=== PATIENT | male | born 1930 | race Caucasian/White ===

== ENCOUNTER 2016-05-09 14:50 | Outpatient (CLI) | payer MEDICARE, OTHER | END 2016-05-09 14:51 | disposition home or self-care (01) | DX: E29.1 Testicular hypofunction (principal) ==

== ENCOUNTER 2016-05-15 10:40 | Outpatient (CLI) | payer MEDICARE, OTHER | END 2016-05-15 10:41 | disposition home or self-care (01) | DX: E87.1 Hypo-osmolality and hyponatremia (principal) ==

== ENCOUNTER 2016-11-20 10:22 | Outpatient (CLI) | payer MEDICARE, OTHER ==
[2016-11-20 13:52] LABS: BASOPHILS % (AUTO) 0.8 %; EOSINOPHILS # (AUTO) 0.1 10^3/uL (0.0-0.7); EOSINOPHILS % (AUTO) 4.1 %; HCT - HEMATOCRIT 49.2 % (42.0-52.0); HGB - HEMOGLOBIN 16.4 g/dL (14.0-18.0); LYMPHOCYTES # (AUTO) 1.2 10^3/uL (1.5-3.5); LYMPHOCYTES % (AUTO) 35.2 %; MEAN CORPUSCULAR HGB CONC 33.3 g/dL (32.0-36.0); MEAN CORPUSCULAR VOLUME 93.2 fL (80.0-94.0); MONOCYTES # (AUTO) 0.6 10^3/uL (0.0-1.0); MONOCYTES % (AUTO) 16.7 %; NEUTROPHILS # (AUTO) 1.4 10^3/uL (1.5-6.6); NEUTROPHILS % (AUTO) 43.2 %; NUCLEATED RED BLOOD CELLS AUTO 0.2 /100WBC; RED BLOOD COUNT 5.28 10^6/uL (4.70-6.10); RED CELL DISTRIBUTION WIDTH 14.9 % (12.0-15.0); UNCORRECTED WHITE BLOOD COUNT 3.3 x10^3/uL; WHITE BLOOD COUNT 3.3 x10^3/uL (4.8-10.8)
[2016-11-20 14:18] LABS: ALBUMIN/GLOBULIN RATIO 1.1 (1.0-2.2); BILIRUBIN,TOTAL 0.9 mg/dL (0.2-1.0); BUN - BLOOD UREA NITROGEN 27 mg/dL (6-20); CALCIUM 9.2 mg/dL (8.5-10.3); CARBON DIOXIDE - CO2 30 mmol/L (21-32); CHLORIDE 100 mmol/L (101-111); CHOL/HDL RATIO 5.3 (<5.0); CHOLESTEROL 213 mg/dL; CREATININE 1.1 mg/dL (0.6-1.2); GFR - MDRD 64 (>89); GLUCOSE 120 mg/dL (70-100); HDL CHOLESTEROL 40 mg/dL; LDL/HDL RATIO 3.9 (<3.6); POTASSIUM 4.1 mmol/L (3.5-5.0); SODIUM 136 mmol/L (135-145); TOTAL PROTEIN 7.4 g/dL (6.7-8.2); TRIGLYCERIDES 79 mg/dL; VLDL CHOLESTEROL 16 mg/dL
== END 2016-11-20 10:23 | disposition home or self-care (01) ==
LOC: LAB.WCP 10:22
PROVIDERS: ATTEND Family Medicine
DX: E87.1 Hypo-osmolality and hyponatremia (principal); I35.0 Nonrheumatic aortic (valve) stenosis; Q98.4 Klinefelter syndrome, unspecified; D46.9 Myelodysplastic syndrome, unspecified; I48.0 Paroxysmal atrial fibrillation; I71.4 Abdominal aortic aneurysm, without rupture
CPT/HCPCS: 36415; 80053; 80061; 84443; 85025

== ENCOUNTER 2017-07-22 13:46 | Outpatient (CLI) | payer MEDICARE, OTHER ==
[2017-07-22 19:06] LABS: EOSINOPHILS # (AUTO) 0.1 10^3/uL (0.0-0.7); EOSINOPHILS % (AUTO) 3.7 %; HGB - HEMOGLOBIN 16.9 g/dL (14.0-18.0); LYMPHOCYTES # (AUTO) 1.2 10^3/uL (1.5-3.5); MEAN CORPUSCULAR HEMOGLOBIN 30.6 pg (27.0-31.0); MEAN CORPUSCULAR VOLUME 92.8 fL (80.0-94.0); MEAN PLATELET VOLUME 7.9 fL (7.4-11.4); MONOCYTES # (AUTO) 0.5 10^3/uL (0.0-1.0); MONOCYTES % (AUTO) 14.3 %; NEUTROPHILS # (AUTO) 1.4 10^3/uL (1.5-6.6); PLT - PLATELET COUNT 128 10^3/uL (130-450); RED BLOOD COUNT 5.52 10^6/uL (4.70-6.10); RED CELL DISTRIBUTION WIDTH 14.2 % (12.0-15.0); WHITE BLOOD COUNT 3.1 x10^3/uL (4.8-10.8)
[2017-07-22 19:37] LABS: ALBUMIN 4.7 g/dL (3.2-5.5); ALBUMIN/GLOBULIN RATIO 1.4 (1.0-2.2); BILIRUBIN,TOTAL 0.8 mg/dL (0.2-1.0); CALCIUM 9.8 mg/dL (8.5-10.3); CREATININE 1.1 mg/dL (0.6-1.2); TOTAL PROTEIN 8.1 g/dL (6.7-8.2)
== END 2017-07-22 13:47 ==
LOC: LAB.WCP 13:46
PROVIDERS: ATTEND Family Medicine
DX: E87.1 Hypo-osmolality and hyponatremia (principal); E78.5 Hyperlipidemia, unspecified; I10 Essential (primary) hypertension
CPT/HCPCS: 36415; 80053; 85025

== ENCOUNTER 2018-08-20 11:27 | Day surgery (SDC) | payer MEDICARE, OTHER ==
[2018-08-20] MEDS ORDERED: LACTATED RINGERS 1,000 ML IV ONE ×2 (12:02→13:37)
[2018-08-20] MEDS ORDERED: LIDO GARGLE 30 ML BOTTLE ONE (12:40)
[2018-08-20] MEDS ORDERED: fentaNYL 100 MCG/2 ML VIAL IVP ONE ×2 (13:05)
[2018-08-20] MEDS ORDERED: MIDAZOLAM 2 MG/2 ML VIAL IVP ONE ×2 (13:05)
[2018-08-20] MEDS ORDERED: BENZOCAINE/TETRACAINE/BUTAMBEN 20 GM TOP ONE (13:17)
[2018-08-20] MEDS ORDERED: LIDO GARGLE 30 ML BOTTLE PO ONE (13:17)
[2018-08-20 15:28] VITALS: BP 117/67
== END 2018-08-20 11:28 | disposition home or self-care (01) ==
LOC: SDS 11:27
PROVIDERS: ATTEND Surgery
PROC: 0DBP8ZZ Excision of Rectum, Via Natural or Artificial Opening Endoscopic (ICD-10-PCS; principal; 2018-08-20 13:00)
PROC: 0DJ08ZZ Inspection of Upper Intestinal Tract, Via Natural or Artificial Opening Endoscopic (ICD-10-PCS; 2018-08-20 13:00)
DX: D50.9 Iron deficiency anemia, unspecified (principal); K63.5 Polyp of colon; K44.9 Diaphragmatic hernia without obstruction or gangrene; I48.0 Paroxysmal atrial fibrillation; I35.0 Nonrheumatic aortic (valve) stenosis; I10 Essential (primary) hypertension; K21.9 Gastro-esophageal reflux disease without esophagitis; I71.4 Abdominal aortic aneurysm, without rupture; G47.33 Obstructive sleep apnea (adult) (pediatric); Q98.4 Klinefelter syndrome, unspecified; H53.9 Unspecified visual disturbance; E78.5 Hyperlipidemia, unspecified; R73.02 Impaired glucose tolerance (oral); Z79.01 Long term (current) use of anticoagulants; Z95.0 Presence of cardiac pacemaker
CPT/HCPCS: 43235; 45380; A9270; J7120

== ENCOUNTER 2018-08-30 13:32 | Outpatient (CLI) | payer MEDICARE, OTHER | END 2018-08-30 13:33 | disposition home or self-care (01) | LOC: SC 13:32 | PROVIDERS: ATTEND Internal Medicine Pulmonary Disease | DX: G47.33 Obstructive sleep apnea (adult) (pediatric) (principal); E66.9 Obesity, unspecified; Z68.36 Body mass index [BMI] 36.0-36.9, adult | CPT/HCPCS: 99203; G0463; 99212 ==

== ENCOUNTER 2018-09-16 19:19 | Outpatient (CLI) | payer MEDICARE, OTHER | END 2018-09-16 19:20 | disposition home or self-care (01) | LOC: SC 19:19 | PROVIDERS: ATTEND Internal Medicine Pulmonary Disease | DX: G47.33 Obstructive sleep apnea (adult) (pediatric) (principal); G47.61 Periodic limb movement disorder | CPT/HCPCS: 95810 ==

== ENCOUNTER 2018-09-29 09:55 | Outpatient (CLI) | payer MEDICARE, OTHER | END 2018-09-29 09:56 | disposition home or self-care (01) | LOC: SC 09:55 | PROVIDERS: ATTEND Nurse Practitioner Family | DX: G47.33 Obstructive sleep apnea (adult) (pediatric) (principal); G47.61 Periodic limb movement disorder; I95.9 Hypotension, unspecified | CPT/HCPCS: 99215; G0463; 99212 ==

== ENCOUNTER 2018-10-28 19:37 | Outpatient (CLI) | payer MEDICARE, OTHER | END 2018-10-28 19:38 | disposition home or self-care (01) | LOC: SC 19:37 | PROVIDERS: ATTEND Internal Medicine Pulmonary Disease | DX: G47.33 Obstructive sleep apnea (adult) (pediatric) (principal); G47.61 Periodic limb movement disorder | CPT/HCPCS: 95811 ==

== ENCOUNTER 2018-11-11 12:44 | Outpatient (CLI) | payer MEDICARE, OTHER | END 2018-11-11 12:45 | disposition home or self-care (01) | LOC: SC 12:44 | PROVIDERS: ATTEND Nurse Practitioner Family | DX: G47.33 Obstructive sleep apnea (adult) (pediatric) (principal) | CPT/HCPCS: 99214; G0463; 99212 ==

== ENCOUNTER 2018-12-14 14:42 | Outpatient (CLI) | payer MEDICARE, OTHER ==
[2018-12-14 15:57] VITALS: BP 116/60
--- NOTE | 2018-12-14 15:57 | SLEEP CARE CONSULTATION ---
Information from patient questionnaire entered by Kelin Aguila. I have reviewed and concur with the information entered by Kelin Aguila. This document represents the service I personally performed and the decisions made by me, Paige Joe, RN, MSN, INVESTOR RELATIONS SPECIALIST. History of Present Illness Previous diagnosis: Severe, Obstructive Sleep Apnea-Hypopnea Syndrome AHI: 32.2 Reason for CPAP/BiPAP follow up: first compliance Equipment type: BiPAP Equipment obtained from: [facility] Mask style: Full face (Dreamwear) Mask brand: Respironics Backup mask available: No Last cushion change: none since set up HPI additional information: Patient here for first compliance of new BIPAP device that was indicated for better apnea control on his titration study. Since BiPAP started, the patient called reporting the pressure was too high so I adjusted lower from 20/96wiG63 to 16/95gkG22. He is still struggling with the new pressure being comfortable. CPAP Compliance Data - Data Reviewed with Patient Average duration of nightly device use: Compliance rate %: 86.7 Current pressure setting (cmH2O): 16/12 Humidity settin Heated hose settin Average residual AHI: 5.5 (this is on CPAP and BiPAP a few days) Average large leak: 49 mins 12 secs Subjective Patient concerns: reports: mask discomfort (only when pressure is at high range), mask leak noise (most night waking him), dry mouth, nose, throat. denies: aerophagia, air blowing in eyes, condensation in mask/hose, nasal congestion, epistaxis (only during day , not with CPAP. ) Initial [place] Sleepiness Scale score: 14 Current [place] Sleepiness Scale score: 14 Allergies and Home Medications Known drug allergies: Yes (aspirin, fish oil) Home medication list reviewed: Yes Allergy and home medication list: Medication List Medication Name (generic/name brand) Strength & Dosage Losartan Potassium 1/4 of a 100 mg tab one every evening = 25mg Bisoprolol Fumarate 1/2 of 10mg tab one daily = 5mg Eliquis 20mg tab one daily Lasix (Furosemide) 20mg tab one daily in the morning Acetaminophen 500mg tab 1-2 three times daily as needed One-A-Day Mens Tab one daily Vitamin C 1000mg tab one twice daily 50+ Adult Eye Health Cap two daily Move Free Joint Health Tab one Daily Omeprazole delayed release 20mg tab one daily Allergy List Aspirin Fish Oil Review of Systems Review of systems same as previous: Yes Physical Exam Blood Pressure: 116/60 Cuff size: long Heart Rate: 60 O2 Saturation: 97 Height: 5 ft 8 in Weight (kg): 103.328 kg Body Mass Index: 34.6 BMI Classification: Class 1 Impression and Plan 1. Obstructive Sleep Apnea-Hypopnea Syndrome, severe, with good treatment compliance of CPAP. Current BiPAP use shows slightly elevated AHI with limited use due to discomfort. On CPAP therapy, the patient has better sleep quality and is more rested overall but with BiPAP, the pressure is reported as too high and interfering with sleep. Thus after much discussion and review of compliance reports and sleep study, I will reduce his BiPAP pressure to 12/6cmH20. Patient advised to contact me if the pressure change is not comfortable . I will try to get completed in office for immediate results. Since he just started BiPAP, the next appointment checking his pressure will serve as his 1st compliant visit. To reduce mask leaks, he is to change the mask cushion regularly. He was informed the cushions are in route. The lower pressure and new cushions should reduce mask leaks and oral dryness. He can also adjust his humidity up or heated hose down for more moisture. Hopefully these measures will improve his sleep and reduce sleepiness symptoms. Patient's apnea severity and rationale for treatment to reduce apnea, improve sleep quality and reduce cardiovascular and cerebrovascular events was reviewed. I also reviewed the benefit of consistent device use of BiPAP for hypertension, arrhythmia. * Change BiPAP pressure to 12/6 cmH2O * Change mask cushion * Adjust humidity and heated hose. * Notify me if snoring with mask or feeling that the pressure is too much or too little * Attempt to lose weight * Return for follow up in 1-2 months , or sooner if concerns arise I spent 100% of this 35 minute visit face to face with the patient with greater than 50% of this was spent time counseling the patient and coordination of care.
== END 2018-12-14 14:43 | disposition home or self-care (01) ==
LOC: SC 14:42
PROVIDERS: ATTEND Nurse Practitioner Family
DX: G47.33 Obstructive sleep apnea (adult) (pediatric) (principal)
CPT/HCPCS: 99214; G0463; 99212

== ENCOUNTER 2019-02-15 09:10 | Outpatient (CLI) | payer MEDICARE, OTHER ==
[2019-02-15 10:54] VITALS: BP 90/50
--- NOTE | 2019-02-15 10:54 | SLEEP CARE CONSULTATION ---
Information from patient questionnaire entered by Kelin Aguila. I have reviewed and concur with the information entered by Kelin Aguila. This document represents the service I personally performed and the decisions made by me, Paige Joe, RN, MSN, THIRD GRADE TEACHER. History of Present Illness Previous diagnosis: Severe, Obstructive Sleep Apnea-Hypopnea Syndrome AHI: 32.2 Reason for CPAP/BiPAP follow up: other (2 month) Equipment type: BiPAP Equipment obtained from: [facility] Mask style: Full face Mask brand: Respironics Backup mask available: No Last cushion change: 1 month ago CPAP Compliance Data - Data Reviewed with Patient Average duration of nightly device use: 5.8 Compliance rate %: 88.3 (60 days) Current pressure setting (cmH2O): 12/6 Humidity settin Heated hose settin Average residual AHI: 7.6 Average large leak: 9 mins 21 secs Subjective Missed days of use due to: reports: other (mask leaks ) Patient concerns: reports: mask leak noise (much less after adjustment but difficulty getting seal again after using the bathroom ), nasal congestion (chronic , not interferring with use of BiPAP), dry mouth, nose, throat (most nights - he adjusted the humidity to 4 but no better). denies: aerophagia, mask discomfort, air blowing in eyes, condensation in mask/hose, epistaxis Observed to snore while using device: No (single and sleeps alone) Current pressure setting perceived as: comfortable On therapy, patient: reports: sleeping better, awakening more refreshed, more rested overall. denies: being more awake and alert during the day, drowsiness while driving Initial [place] Sleepiness Scale score: 14 Current [place] Sleepiness Scale score: 13 Allergies and Home Medications Known drug allergies: Yes (aspirin , fish oil ) Home medication list reviewed: Yes Allergy and home medication list: Medication Name (generic/name brand) Strength & Dosage Losartan Potassium 25 mg tab one every evening ( 1/4 tab of 100mg) Bisoprolol Fumarate 10mg 1/2 tab one daily Eliquis 20mg tab one daily toresemide 20mg tab one daily in the morning Acetaminophen 500mg tab 1-2 three times daily as needed One-A-Day Mens Tab one daily Vitamin C 1000mg tab one twice daily 50+ Adult Eye Health Cap two daily Move Free Joint Health Tab one Daily Omeprazole delayed release 20mg tab one daily Allergy List Aspirin Fish Oil Review of Systems Review of systems same as previous: No (blood pressure medications reduced) Physical Exam Blood Pressure: 90/50 (monitors B/P home 115/56 this morning, not usual fluid intake - given 8 ounce water, no light headed ness) Cuff size: long Heart Rate: 64 O2 Saturation: 97 Weight: 226 lb 9.6 oz Impression and Plan 1. Obstructive Sleep Apnea-Hypopnea Syndrome, severe, with good treatment compliance and slightly elevated residual AHI. The BiPAP pressure is comfortable now to use and able to use longer periods with more refreshment of sleep and more rested overall. There is still a slight elevation in residual AHI so I will increase his BiPAP slightly to 13/7 cmH20. He is advised to contact me if new pressure uncomfortable so can be adjusted. To reduce leaks when he sleeps on his side, his preferred position, I showed him a CPAP pillow that can be used. This and other styles run about $60 online. He has already adjusted mask to tightest that is comfortable and checks alignment of straps. He is unsure if he is changing his mask monthly so he is advised to do this as well to maintain fit and comfort of mask. For his oral dryness, I showed him again how to adjust the humidity higher to maximum of 5 on a sample PAP. If continued dryness, he can reduce the heated hose and increase only if condensation. He does not wake refreshed. I showed him that his current average is about 6 hours. I discussed how most people need 7-9 hous of sleep for optimal mental and physical function. He would like to achieve a minimum of 7 hours. To assist him to get more sleep, he is advised to keep a regular wake time and try to go bed about 10 minutes earlier a night until he feels he has adequate sleep. Current wake time is dependent upon ability to return to sleep after getting up to the bathroom. Maybe the PAP pillow will assist this by reducing mask leaks which awaken him when trying to go back to sleep after using the bathroom. Patient's apnea severity and rationale for treatment to reduce apnea, improve sleep quality and reduce cardiovascular and cerebrovascular events was reviewed. I also reviewed the benefit of consistent device use of BiPAP for hypertension, arrhythmia . * * Change BiPAP pressure to 13/7 cmH2O - done in office * Adjust humidity and heated hose * consider CPAP pillow * Obtain more sleep * Notify me if snoring with mask or feeling that the pressure is too much or too little * Return for follow up in 1-2 months , or sooner if concerns arise * * Addendum, The patient called the following day and stated the pressure increase was uncomfortable so returned to 12/7cmH20. I spent 100% of this 45 minute visit face to face with the patient with greater than 50% of this was spent time counseling the patient and coordination of care. Extra time also taken due to hearing deficit, wears 2 hearing aids.
== END 2019-02-15 09:11 | disposition home or self-care (01) ==
LOC: SC 09:10
PROVIDERS: ATTEND Nurse Practitioner Family
DX: G47.33 Obstructive sleep apnea (adult) (pediatric) (principal)
CPT/HCPCS: 99215; G0463; 99212

== ENCOUNTER 2019-04-07 10:10 | Outpatient (CLI) | payer MEDICARE, OTHER ==
--- NOTE | 2019-04-07 11:17 | SLEEP CARE CONSULTATION ---
Information from patient questionnaire entered by Annabella Delaney. I have reviewed and concur with the information entered by Annabella Delaney. This document represents the service I personally performed and the decisions made by me, Paige Joe, RN, MSN, HYDROBLASTER. History of Present Illness Previous diagnosis: Severe, Obstructive Sleep Apnea-Hypopnea Syndrome AHI: 32.2 Reason for follow up: other (2 month) Equipment type: BiPAP Equipment obtained from: [facility] Mask style: Full face Mask brand: Respironics Backup mask available: No (keep current mask when replaced for spare. ) Last cushion change: a couple days ago Prior sleep studies: Yes CPAP Compliance Data - Data Reviewed with Patient Average duration of nightly device use: 5h 37m Compliance rate %: 86.7 Current pressure setting (cmH2O): 12/6 Humidity settin Heated hose settin Average residual AHI: 11.2 Central apnea: 2.7 Obstructive apnea: 5.8 Hypopnea: 2.7 Average large leak: 14m 34s Subjective Patient concerns: reports: mask discomfort (does not hurt but not quite comfortable despite adjustment ), mask leak noise (wakes to adjust mask a few times a night - he will take off the mask occasionally and leave off when unable to keep mask fitted. ), nasal congestion (chronic but does not interfere with use of CPAP ), other (does not breathe through mouth in sleep and wonders if a nasal mask will work better ). denies: aerophagia, dry mouth, nose, throat (rare - only dryness during day if does not hydrate), epistaxis Observed to snore while using device: No (single) Current pressure setting perceived as: comfortable On therapy, patient: reports: awakening more refreshed, being more awake and alert during the day, more rested overall. denies: sleeping better, drowsiness while driving Initial [place] Sleepiness Scale score: 14 Current [place] Sleepiness Scale score: 14 Allergies and Home Medications Known drug allergies: Yes Home medication list reviewed: Yes (lasix changed to toresemide 20mg , no other changes ) Allergy and home medication list: Medication Name (generic/name brand) Strength & Dosage Losartan Potassium 25 mg tab one every evening Bisoprolol Fumarate 10mg tab one daily Eliquis 20mg tab one daily Lasix (Furosemide) 20mg tab one daily in the morning Acetaminophen 500mg tab 1-2 three times daily as needed One-A-Day Mens Tab one daily Vitamin C 1000mg tab one twice daily 50+ Adult Eye Health Cap two daily Move Free Joint Health Tab one Daily Omeprazole delayed release 20mg tab one daily Allergy List Aspirin Fish Oil Review of Systems Review of systems same as previous: Yes Physical Exam Blood Pressure: 100/60 (monitors at home, no dizziness) Cuff size: long Heart Rate: 64 O2 Saturation: 97 Height: 5 ft 8 in Weight: 230 lb Body Mass Index: 34.9 BMI Classification: Obesity Class 1 Impression and Plan 1. Obstructive Sleep Apnea-Hypopnea Syndrome, severe, with good treatment compliance and slightly elevated residual AHI. On CPAP therapy, the patient is more refreshed and alert and more rested overall. The BiPAP pressure was increased slightly at last visit but patient unable to tolerate, thus no change will be done at this time. Perhaps a nasal mask may be more comfortable as well as reduce residual AHI. Sometimes a full face mask can push jaw back and increase apnea. Currently his full face mask is uncomfortable and he is waking several times during the night to adjust. For his mask concerns, I showed him some masks. I fitted him with a DreamWisp mask , size large. I showed him how to track his sleep time and mask fit and AHI on sample device for him to check at home. An order was written for this mask style trial in the event he prefers. Otherwise a mask refitting will be done when he is due for a new mask. Patient's apnea severity and rationale for treatment to reduce apnea, improve sleep quality and reduce cardiovascular and cerebrovascular events was reviewed. Thus I reviewed how he needs to use CPAP with all sleep for maximum benefit of treatment. I also reviewed the benefit of consistent device use of CPAP for his hypertension, arrhythmia. * Continue BiPAP pressure at 12/6cmH2O * Try Dreamwisp nasal mask * Use CPAP with all sleep * Notify me if snoring with mask or feeling that the pressure is too much or too little * Attempt to lose weight * Return for follow up in 1-2 months , or sooner if concerns arise I spent 100% of this 33 minute visit face to face with the patient with greater than 50% of this was spent time counseling the patient and coordination of care.
[2019-04-07 11:18] VITALS: BP 100/60
== END 2019-04-07 10:11 | disposition home or self-care (01) ==
LOC: SC 10:10
PROVIDERS: ATTEND Nurse Practitioner Family
DX: G47.33 Obstructive sleep apnea (adult) (pediatric) (principal)
CPT/HCPCS: 99214; G0463; 99212

== ENCOUNTER 2020-05-30 11:59 | Outpatient (CLI) | payer MEDICARE, OTHER ==
[2020-05-30 18:46] LABS: HEMOGLOBIN A1c% 6.3 % (4.27-6.07)
[2020-05-30 18:52] LABS: BASOPHILS % (AUTO) 1.1 %; EOSINOPHILS # (AUTO) 0.1 10^3/uL (0.0-0.7); EOSINOPHILS % (AUTO) 3.8 %; HGB - HEMOGLOBIN 10.2 g/dL (14.0-18.0); LYMPHOCYTES # (AUTO) 1.3 10^3/uL (1.5-3.5); LYMPHOCYTES % (AUTO) 34.6 %; MEAN CORPUSCULAR HEMOGLOBIN 28.2 pg (27.0-31.0); MEAN CORPUSCULAR HGB CONC 30.9 g/dL (32.0-36.0); MEAN CORPUSCULAR VOLUME 91.2 fL (80.0-94.0); MEAN PLATELET VOLUME 10.4 fL (7.4-11.4); MONOCYTES # (AUTO) 0.5 10^3/uL (0.0-1.0); MONOCYTES % (AUTO) 13.8 %; NEUTROPHILS # (AUTO) 1.7 10^3/uL (1.5-6.6); NEUTROPHILS % (AUTO) 46.4 %; PLT - PLATELET COUNT 162 10^3/uL (130-450); RED BLOOD COUNT 3.62 10^6/uL (4.70-6.10); RED CELL DISTRIBUTION WIDTH 14.6 % (12.0-15.0); WHITE BLOOD COUNT 3.7 x10^3/uL (4.8-10.8)
[2020-05-30 19:15] LABS: CREATININE,URINE 98.4 mg/dL; MICROALBUM/CREATININE RATIO,UR 35.6 ug/mg (<30.0); MICROALBUMIN,URINE 3.5 mg/dL (0-300.0)
[2020-05-30 19:16] LABS: ALBUMIN 3.9 g/dL (3.2-5.5); ALBUMIN/GLOBULIN RATIO 1.1 (1.0-2.2); ALKALINE PHOSPHATASE 91 IU/L (42-121); ALT ALANINE AMINOTRANSFERASE 14 IU/L (10-60); AST ASPARTATE AMINOTRANSFERASE 23 IU/L (10-42); BILIRUBIN,TOTAL 0.7 mg/dL (0.2-1.0); BUN - BLOOD UREA NITROGEN 37 mg/dL (6-20); CALCIUM 9.3 mg/dL (8.5-10.3); CARBON DIOXIDE - CO2 28 mmol/L (21-32); CHLORIDE 98 mmol/L (101-111); CHOL/HDL RATIO 5.1 (<5.0); CHOLESTEROL 214 mg/dL; CREATININE 1.3 mg/dL (0.6-1.2); GLUCOSE 99 mg/dL (70-100); HDL CHOLESTEROL 42 mg/dL; LDL CHOLESTEROL,CALCULATED 157 mg/dL; LDL/HDL RATIO 3.7 (<3.6); TOTAL PROTEIN 7.6 g/dL (6.7-8.2); VLDL CHOLESTEROL 15 mg/dL
== END 2020-05-30 23:59 | disposition home or self-care (01) ==
LOC: LAB.WCP 11:59
PROVIDERS: ATTEND Internal Medicine
DX: I10 Essential (primary) hypertension (principal); R73.03 Prediabetes; I48.0 Paroxysmal atrial fibrillation; D46.9 Myelodysplastic syndrome, unspecified
CPT/HCPCS: 36415; 80053; 80061; 82043; 82570; 83036; 83721; 84443; 85025

== ENCOUNTER 2020-06-15 11:20 | Outpatient (CLI) | payer MEDICARE, OTHER ==
--- NOTE | 2020-06-15 16:04 | Ultrasound Report ---
PROCEDURE: Retroperitoneal Limited INDICATIONS: ABDOMINAL AORTIC ANEURYSM TECHNIQUE: Real-time scanning was performed of the retroperitoneal organs, with image documentation. COMPARISON: Ultrasound aorta 04/29/2015, FINDINGS: Aorta: Proximal mid and distal portions measure 2.4 x 2.3 x 2.5 cm, 5.6 x 5.6 x 5.8 cm and 5.9 x 5.9 x 6.5 cm respectively. Craniocaudal length of the aneurysm measures approximately 12.6 cm. It is note d on previous ultrasound exam that the mid and distal portion of the abdominal aneurysm has a maximal AP dimension of 4.9 cm which has increased as noted. Right iliac artery measures 2.4 x 2.0 x 1.9 cm. Left iliac artery measures 2.3 x 1.8 x 2.1 cm. IMPRESSION: 1. Apparent interval increase in size of previous identified aortic aneurysm. Further evaluation with CTA abdomen and pelvis is recommended for further characterization given interval increase in size s sarah 2014. Reviewed by: Madina Deras MD on 06/15/2020 4:02 PM PST Approved by: Madina Deras MD on 06/15/2020 4:02 PM PST Station ID: [id number]
== END 2020-06-15 11:21 | disposition home or self-care (01) ==
LOC: DI 11:20
PROVIDERS: ATTEND Internal Medicine
DX: I71.4 Abdominal aortic aneurysm, without rupture (principal)

== ENCOUNTER 2020-06-28 10:18 | Outpatient (CLI) | payer MEDICARE, OTHER | END 2020-06-28 10:19 | disposition home or self-care (01) | LOC: DI 10:18 | PROVIDERS: ATTEND Internal Medicine | DX: I08.0 Rheumatic disorders of both mitral and aortic valves (principal); I27.20 Pulmonary hypertension, unspecified; I71.4 Abdominal aortic aneurysm, without rupture | CPT/HCPCS: 93306 ==

== ENCOUNTER 2020-07-17 11:12 | Outpatient (CLI) | payer MEDICARE, OTHER ==
[2020-07-17] MEDS ORDERED: IOVERSOL 320 100 ML VIAL IVP ONE ×2 (11:48→12:39)
[2020-07-17 11:54] LABS: CALCIUM 9.6 mg/dL (8.5-10.3); CREATININE 1.4 mg/dL (0.6-1.2); POTASSIUM 3.9 mmol/L (3.5-5.0)
--- NOTE | 2020-07-17 17:39 | CT Report ---
PROCEDURE: ANGIO ABD RUNOFF W/WO - B/L INDICATIONS: AAA CONTRAST: IV CONTRAST: Optiray 320 ml: 125 PO CONTRAST: *NO PO CONTRAST TECHNIQUE: After the administration of intravenous contrast, 2 and 5 mm sections acquired from T12 to the feet, with optional delayed image acquisition from the knees to the feet. 3-dimensional maximum intensity projection (MIP) coronal and sagittal reformats, and/or 3-dimensional volume rendering reformatting w as then performed. For radiation dose reduction, the following was used: automated exposure control , adjustment of mA and/or kV according to patient size. COMPARISON: None. FINDINGS: Image quality: Excellent. Extravascular tissues: Lung bases are clear. Heart size is normal. The mitral valve has calcificat ions of the annulus. Liver and spleen are normal in size and enhancement. Gallbladder is normal Vamsi iary system is non dilated. Pancreas enhances normally. No adrenal nodules. Kidneys are normal in size and enhancement, without hydronephrosis. There are multiple cysts in the kidneys bilaterally me asuring up to 7.4 cm on the right and 2 on the left measuring 4.6 cm and 4.2 cm. Non opacified bowel loops demonstrate normal wall thickness and enhancement. No free fluid or air. No retroperitoneal o r mesenteric adenopathy. No ventral hernias. Bilateral fat-containing inguinal hernias. Bladder wal l thickness is normal. No suspicious bony lesions. No vertebral body compression fractures. There is a Crowder's cyst in the left popliteal fossa. Abdominal aorta: There is an infrarenal abdominal aortic aneurysm measuring up to 8.3 cm in diameter and measuring 12 cm in length. There is an eccentric mural thrombus along the anterior wall. There i s no evidence of rupture or extravasation. Right lower extremity: The right common iliac artery, internal iliac artery, external iliac artery, common femoral artery, deep femoral artery, superficial femoral artery, and popliteal artery are bowling nt. Left lower extremity: The left common iliac artery, internal iliac artery, external iliac artery, co mmon femoral artery, deep femoral artery, superficial femoral artery, and popliteal artery are patent . IMPRESSION: 1. Infrarenal abdominal aortic aneurysm measuring up to 6.3 cm in diameter and 12 cm in length. 2. 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 3. Left Crowder's cyst. 4. Bilateral fat-containing inguinal hernias. 5. Simple cysts of the kidneys bilaterally. Attempted to call the physician's office, however the office was closed and no one could be contacted . Additional attempts will be made in the morning. The aneurysm is similar in size compared to an ult rasound on 06/15/2020. Reviewed by: Gabriele Olguin on 07/17/2020 5:38 PM PDT Approved by: Gabriele Olguin on 07/17/2020 5:38 PM PDT Station ID: [id number]
== END 2020-07-17 11:13 | disposition home or self-care (01) ==
LOC: LAB 11:12 → DI 11:13
PROVIDERS: ATTEND Internal Medicine
DX: I71.4 Abdominal aortic aneurysm, without rupture (principal); I72.4 Aneurysm of artery of lower extremity; M71.22 Synovial cyst of popliteal space [Baker], left knee; K40.20 Bilateral inguinal hernia, without obstruction or gangrene, not specified as recurrent; N28.1 Cyst of kidney, acquired
CPT/HCPCS: 36415; 75635; 80048; Q9967

== ENCOUNTER 2021-02-17 16:11 | Outpatient (CLI) | payer MEDICARE, OTHER | END 2021-02-17 23:59 | disposition critical access hospital (66) | LOC: EMS 16:11 | DX: S00.03XA Contusion of scalp, initial encounter (principal); W18.30XA Fall on same level, unspecified, initial encounter; Z79.01 Long term (current) use of anticoagulants | CPT/HCPCS: A0425; A0429 ==

== ENCOUNTER 2021-02-17 17:20 | Emergency (ER) | payer MEDICARE, OTHER ==
--- NOTE | 2021-02-17 17:25 | ED Physician Documentation ---
PD HPI HEAD INJURY - Stated complaint Stated Complaint: GLF - History obtained from History obtained from: Patient, EMS - History of Present Illness Mechanism of head injury: Fell (89-year-old gentleman on [address] fell backwards from a seated position hitting his head on the floor. There was no loss of consciousness. He has a very mild headache. He has a hematoma on the superior occiput. No other injuries. Brought in by ambulance as a modified trauma given the circumstanc) Review of Systems Constitutional: reports: Reviewed and negative Eyes: reports: Reviewed and negative Ears: reports: Reviewed and negative Nose: reports: Reviewed and negative PD PAST MEDICAL HISTORY - Past Medical History Cardiovascular: Hypertension, Deep vein thrombosis, Atrial fibrillation, Arrhythmia Respiratory: Sleep apnea Endocrine/Autoimmune:  GI: GERD, Hiatal hernia : Benign prostate hypertrophy, Kidney stones HEENT: Chronic vision loss, Chronic sinusitis, Chronic hearing loss Psych: Claustrophobia Musculoskeletal: Osteoarthritis, Gout, Chronic back pain Derm: None - Past Surgical History Past Surgical History: Yes General: Appendectomy, Colonoscopy Ortho: Spine surgery, Other Cardiovascular: Pacemaker HEENT: Tonsil/Adenoidectomy - Present Medications Home Medications: Ambulatory Orders Medication Instructions Recorded Confirmed Ascorbic Acid [Vitamin C] 1,000 mg PO TID 06/22/13 01/23/21 Bisoprolol Fumarate [Zebeta] 10 mg PO DAILY 06/22/13 01/23/21 Furosemide [Lasix] 20 mg PO BID 06/22/13 01/23/21 Multivitamin [Multivitamins] 1 each PO DAILY 06/22/13 01/23/21 Omeprazole [PriLOSEC] 20 mg PO DAILY 06/22/13 01/23/21 Acetaminophen 1 - 2 tab PO Q8H PRN 08/11/18 01/23/21 - Allergies Allergies/Adverse Reactions: Allergies Allergy/AdvReac Type Severity Reaction Status Date / Time aspirin AdvReac Xarelto use Verified 02/17/21 17:28 fish oil AdvReac sleepy Verified 02/17/21 17:28 - Social History Does the pt smoke?: No Smoking Status: Never smoker Does the pt drink ETOH?: No Does the pt have substance abuse?: No - Immunizations Immunizations are current?: No PD ED PE NORMAL - Vitals Vital signs reviewed: Yes - General General: Alert and oriented X 3, No acute distress - HEENT HEENT: PERRL, EOMI, Other (There is about a 4 cm hematoma in the superior occiput with an overlying abrasion.) - Neck Neck: No bony TTP - Extremities Extremities: No deformity, No tenderness to palpate, Normal ROM s pain, No edema, No calf tenderness / cord - Neuro Neuro: Alert and oriented X 3, feeder catcher tobacco 2-12 intact, No motor deficit, No sensory deficit, Normal speech Results - Vitals Vitals: Vital Signs - 24 hr 02/17/21 17:24 Temperature 36.5 C Heart Rate 60 Respiratory 16 Rate Blood Pressure 119/65 O2 Saturation 98 Oxygen O2 Source Room air - Rads (name of study) CT of the head and cervical spine demonstrate degenerative and age-related changes and a mucous retention cyst without evidence of acute trauma Radiology: EMP read contemporaneously Departure - Departure Disposition: 01 Home, Self Care Clinical Impression: Adequate anticoagulation on anticoagulant therapy Head injury Qualifiers: Encounter type: initial encounter Qualified Code(s): S09.90XA - Unspecified injury of head, initial encounter Condition: Good Record reviewed to determine appropriate education?: Yes Instructions: ED Head Injury Closed Comments: Return if you develop worsening headache or other new or worsening symptoms.
--- NOTE | 2021-02-17 18:02 | CT Report ---
PROCEDURE: HEAD WO INDICATIONS: head injury TECHNIQUE: Noncontrast 4.5 mm thick angled axial sections acquired from the foramen magnum to the vertex. For r adiation dose reduction, the following was used: automated exposure control, adjustment of mA and/or kV according to patient size. COMPARISON: CT head without contrast, 04/20/2010. FINDINGS: Image quality: Excellent. CSF spaces: Basal cisterns are patent. No extra-axial fluid collections. Ventricles are prominent but symmetrical in size and shape. Brain: There is moderate cerebral volume loss. Mild periventricular matter chronic small vessel isch emic changes are present. No midline shift. No intracranial masses or hemorrhage. Alfred-white matter interface is normal. Skull and face: Calvarium and visualized facial bones are intact, without suspicious lesions. Sinuses: There is a mucous retention cyst or polyp in the right sphenoid sinus. The mastoids are mary r. IMPRESSION: 1. No acute intracranial abnormalities. 2. Cerebral volume loss and periventricular matter chronic small vessel treatment changes. 3. A mucous retention cyst or polyp in the right sphenoid sinus. Reviewed by: Immanuel Inman MD on 02/17/2021 6:00 PM PDT Approved by: Immanuel Inman MD on 02/17/2021 6:00 PM PDT Station ID: [id number]
--- NOTE | 2021-02-17 18:05 | CT Report ---
PROCEDURE: CERVICAL SPINE WO INDICATIONS: head injury TECHNIQUE: Noncontrast 3 mm thick sections acquired from the skull base to the T4 level. Sagittal and coronal r eformats were then constructed. For radiation dose reduction, the following was used: automated exp osure control, adjustment of mA and/or kV according to patient size. COMPARISON: None. FINDINGS: Image quality: Excellent. Bones: No fractures or dislocations. There is moderate degenerative disc and facet disease in cervi chikis spine. [id number] atlantoaxial joint degeneration. Visualized superior ribs are intact. Soft tissues: Prevertebral soft tissues are normal in thickness. No paravertebral hematomas. No ap ical pneumothoraces. IMPRESSION: 1. No cervical spine fractures. 2. Degenerative changes in cervical spine. Reviewed by: Immanuel Inman MD on 02/17/2021 6:04 PM PDT Approved by: Immanuel Inman MD on 02/17/2021 6:04 PM PDT Station ID: [id number]
[2021-02-17 18:27] VITALS: BP 106/68
== END 2021-02-17 18:32 | disposition home or self-care (01) ==
LOC: EDUNIT# → ED 17:20
DX: S00.03XA Contusion of scalp, initial encounter (principal); S00.01XA Abrasion of scalp, initial encounter; S09.90XA Unspecified injury of head, initial encounter; W07.XXXA Fall from chair, initial encounter; Y93.89 Activity, other specified; Z79.01 Long term (current) use of anticoagulants
CPT/HCPCS: 99282; 99284

== ENCOUNTER 2021-02-20 10:57 | Outpatient (CLI) | payer MEDICARE, OTHER | END 2021-02-20 10:58 | disposition critical access hospital (66) | LOC: EMS 10:57 | DX: R53.1 Weakness (principal) | CPT/HCPCS: A0425; A0429 ==

== ENCOUNTER 2021-02-20 11:25 | Emergency (ER) | payer MEDICARE, OTHER ==
[2021-02-20 12:06] LABS: BASOPHILS % (AUTO) 0.7 %; EOSINOPHILS % (AUTO) 0.5 %; HCT - HEMATOCRIT 35.4 % (42.0-52.0); LYMPHOCYTES # (AUTO) 1.2 10^3/uL (1.5-3.5); LYMPHOCYTES % (AUTO) 19.6 %; MEAN CORPUSCULAR HEMOGLOBIN 28.3 pg (27.0-31.0); MEAN CORPUSCULAR HGB CONC 31.1 g/dL (32.0-36.0); MEAN PLATELET VOLUME 9.8 fL (7.4-11.4); MONOCYTES # (AUTO) 0.9 10^3/uL (0.0-1.0); MONOCYTES % (AUTO) 14.1 %; NEUTROPHILS # (AUTO) 3.9 10^3/uL (1.5-6.6); NEUTROPHILS % (AUTO) 64.9 %; PLT - PLATELET COUNT 132 10^3/uL (130-450); RED BLOOD COUNT 3.89 10^6/uL (4.70-6.10); RED CELL DISTRIBUTION WIDTH 16.7 % (12.0-15.0)
--- NOTE | 2021-02-20 12:20 | ED Physician Documentation ---
History of Present Illness - Stated complaint Stated Complaint: WEAKNESS - Chief complaint Chief Complaint: Neuro - History obtained from History obtained from: Patient - Additonal information Additional information: This is an 89-year-old male He presents today with nonspecific weakness and has not been able to walk due to weakness for the last few days. He states he just generally feels weak, he has no fever, no chills no chest pain or dyspnea, no abdominal pain, no nausea vomiting or diarrhea, no dysuria or urinary symptoms. He has no known sick contacts. He has no change in his medication recently. He did have a glf a few days ago and was seen here at that time w/ reassuring exam. He denies any new falls. He states he has some left knee pain that can be bothersome at times, but this is not new. He states he hasn't been eating "unless someone puts food in front of me." He is followed by hematology and was seen fairly recently. He lives alone and is relatively independent at baseline though prior notes suggest that he has had some increasing difficulty with ADLs and is somewhat isolated. 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 His POA, someone by the name of Melani Polo, With the nurse and had a number of concerns about patient returning home alone. I have called her twice and I have left a message but it has been him able to speak with her directly. Review of Systems Ten Systems: 10 systems reviewed and negative Constitutional: reports: Fatigue. denies: Fever, Chills Eyes: reports: Reviewed and negative Ears: reports: Reviewed and negative Nose: reports: Reviewed and negative Throat: reports: Reviewed and negative Cardiac: reports: Reviewed and negative Respiratory: reports: Reviewed and negative GI: reports: Reviewed and negative : reports: Reviewed and negative Skin: reports: Reviewed and negative Musculoskeletal: reports: Reviewed and negative Neurologic: reports: Reviewed and negative Psychiatric: reports: Reviewed and negative Endocrine: reports: Reviewed and negative PD PAST MEDICAL HISTORY - Past Medical History Past Medical History: Yes Cardiovascular: Hypertension, Deep vein thrombosis, Atrial fibrillation, Arrhythmia Respiratory: Sleep apnea Endocrine/Autoimmune:  GI: GERD, Hiatal hernia : Benign prostate hypertrophy, Kidney stones HEENT: Chronic vision loss, Chronic sinusitis, Chronic hearing loss Psych: Claustrophobia Musculoskeletal: Osteoarthritis, Gout, Chronic back pain Derm: None - Past Surgical History Past Surgical History: Yes General: Appendectomy, Colonoscopy Ortho: Spine surgery, Other Cardiovascular: Pacemaker HEENT: Tonsil/Adenoidectomy - Present Medications Home Medications: Ambulatory Orders Medication Instructions Recorded Confirmed Ascorbic Acid [Vitamin C] 1,000 mg PO TID 06/22/13 01/23/21 Bisoprolol Fumarate [Zebeta] 10 mg PO DAILY 06/22/13 01/23/21 Furosemide [Lasix] 20 mg PO BID 06/22/13 01/23/21 Multivitamin [Multivitamins] 1 each PO DAILY 06/22/13 01/23/21 Omeprazole [PriLOSEC] 20 mg PO DAILY 06/22/13 01/23/21 Acetaminophen 1 - 2 tab PO Q8H PRN 08/11/18 01/23/21 - Allergies Allergies/Adverse Reactions: Allergies Allergy/AdvReac Type Severity Reaction Status Date / Time aspirin AdvReac Xarelto use Verified 02/20/21 11:33 fish oil AdvReac sleepy Verified 02/20/21 11:33 - Social History Does the pt smoke?: No Smoking Status: Never smoker Does the pt drink ETOH?: No Does the pt have substance abuse?: No - Immunizations Immunizations are current?: No PD ED PE NORMAL - Vitals Vital signs reviewed: Yes - General General: Alert and oriented X 3, No acute distress, Other (Appears fatigued, withdrawn. ) - HEENT HEENT: Atraumatic, Pharynx benign. No: Moist mucous membranes (Dry tongue and lips) - Neck Neck: Supple, no meningeal sign, No JVD - Cardiac Cardiac: RRR, Other (Loud systolic ejection murmur) - Respiratory Respiratory: No respiratory distress, Clear bilaterally - Abdomen Abdomen: Normal bowel sounds, Soft, Non tender, Non distended, No organomegaly - Male Male : Deferred - Rectal Rectal: Deferred - Back Back: No CVA TTP, No spinal TTP - Derm Derm: Normal color, Warm and dry, No rash - Extremities Extremities: No deformity, No tenderness to palpate, Normal ROM s pain, Other (Generalized left knee pain, but no focal tenderness on exam, no erythema, full passive ROM. ) - Neuro Neuro: Alert and oriented X 3 (is alert and oriented and answers questions generally appropriately though does appear forgetful at times), No sensory defi cit, Normal speech, Other (Follows commands in all ext, 5/5 UE strength. Both legs are weak, requires assistance to stand and cannot ambulate independently. He has normal sensation in all ext. ) Eye Opening: Spontaneous Motor: Obeys Commands Verbal: Oriented GCS Score: 15 - Psych Psych: Normal mood, Normal affect Results - Vitals Vitals: Vital Signs - 24 hr 02/20/21 11:30 Temperature 36.6 C Heart Rate 71 Respiratory 18 Rate Blood Pressure 145/58 H O2 Saturation 99 Oxygen O2 Source Room air - Labs Labs: Laboratory Tests 02/20/21 02/20/21 02/20/21 12:00 12:00 15:13 WBC 6.0 RBC 3.89 L Hgb 11.0 L Hct 35.4 L MCV 91.0 MCH 28.3 MCHC 31.1 L RDW 16.7 H Plt Count 132 MPV 9.8 Neut # (Auto) 3.9 Lymph # (Auto) 1.2 L [place] # (Auto) 0.9 Eos # (Auto) 0.0 Baso # (Auto) 0.0 Absolute Nucleated RBC 0.00 Nucleated RBC % 0.0 Sodium 141 Potassium 3.6 Chloride 102 Carbon Dioxide 29 Anion Gap 10.0 BUN 44 H Creatinine 1.3 H Estimated GFR (MDRD) 52 L Glucose 148 H Calcium 9.6 Total Bilirubin 1.1 H AST 31 ALT 17 Alkaline Phosphatase 79 Total Protein 8.5 H Albumin 4.1 Globulin 4.4 H Albumin/Globulin Ratio 0.9 L Lipase 26 Urine Color YELLOW Urine Clarity CLEAR Urine pH 7.0 Ur Specific [place] 1.020 Urine Protein 100 H Urine Glucose (UA) NEGATIVE Urine Ketones NEGATIVE Urine Occult Blood TRACE-INTA Urine Nitrite NEGATIVE Urine Bilirubin NEGATIVE Urine Urobilinogen 0.2 (NORMAL) Ur Leukocyte Esterase NEGATIVE Urine RBC 0-5 Urine WBC 0-3 Ur Squamous Epith Cells RARE Squamous Urine Bacteria None Seen Ur Microscopic Review INDICATED Urine Culture Comments NOT INDICATED PD MEDICAL DECISION MAKING - ED course Complexity details: reviewed old records, reviewed results, re-evaluated patient, considered differential, d/w patient ED course: 89-year-old male with past medical history as noted above who presented with generalized weakness. His physical exam is largely reassuring, labs are stable, CT head is negative. He does not have a UTI or other signs of infection, his vitals here have been stable. He is however profoundly weak in the lower extremities and unable to walk independently. He also has not been eating or drinking sufficiently at home though this seems to be more for the lack of ability to make his own food as he ate heartily here in the ER without difficulty. He lives alone and I believe it would not be safe for him to be discharged home alone at this time. He does not have family available to care for him and is interested in longterm placement. I did discuss this with the long term care social worker that was at the end of her day and she was unable to make arrangements with any facilities at this time. She will pursue this in the morning and we will board the patient in the ER and to that time due to lack of safe discharge plan at this time. I do not think he has an admittable diagnosis and due to bed limitations we will keep him in the ER for now pending placement. Departure - Departure Clinical Impression: Asthenia Condition: Good
[2021-02-20 12:24] LABS: ALBUMIN 4.1 g/dL (3.2-5.5); ALBUMIN/GLOBULIN RATIO 0.9 (1.0-2.2); BILIRUBIN,TOTAL 1.1 mg/dL (0.2-1.0); CALCIUM 9.6 mg/dL (8.5-10.3); CREATININE 1.3 mg/dL (0.6-1.2); POTASSIUM 3.6 mmol/L (3.5-5.0); TOTAL PROTEIN 8.5 g/dL (6.7-8.2)
[2021-02-20] MEDS ORDERED: SODIUM CHLORIDE 0.9% 500 ML IV STA ×2 (13:18→16:07)
[2021-02-20 15:32] LABS: BILIRUBIN,URINE NEGATIVE (NEGATIVE); GLUCOSE, URINE (UA) NEGATIVE (NEGATIVE); KETONES,URINE (UA) NEGATIVE (NEGATIVE); LEUKOCYTE ESTERASE, URINE NEGATIVE (NEGATIVE); NITRITE,URINE NEGATIVE (NEGATIVE); OCCULT BLOOD,URINE TRACE-INTA (NEGATIVE); PROTEIN,URINE 100 mg/dL (NEGATIVE); UROBILINOGEN,URINE 0.2 (NORMAL) E.U./dL (NORMAL)
[2021-02-20 15:35] LABS: CLARITY,URINE CLEAR (CLEAR)
[2021-02-20 15:54] LABS: BACTERIA,URINE None Seen /HPF (None Seen); RBC,URINE 0-5 /HPF (0-5); SQUAMOUS EPITHELIAL CELL,UR RARE Squamous (<= Few); WBC,URINE 0-3 /HPF (0-3)
--- NOTE | 2021-02-20 16:46 | CT Report ---
PROCEDURE: HEAD WO INDICATIONS: weakness TECHNIQUE: Noncontrast 4.5 mm thick angled axial sections acquired from the foramen magnum to the vertex. For r adiation dose reduction, the following was used: automated exposure control, adjustment of mA and/or kV according to patient size. COMPARISON: 02/17/2021 FINDINGS: Image quality: There is artifact associated with the metallic hardware. CSF spaces: Basal cisterns are patent. No extra-axial fluid collections. Ventricles are normal in size and shape. Brain: No midline shift. No intracranial masses or hemorrhage. Alfred-white matter interface is norm al. Age-appropriate brain parenchymal volume loss and chronic small vessel ischemic change can be se en. Skull and face: Calvarium and visualized facial bones are intact, without suspicious lesions. Sinuses: Visualized sinuses and mastoids are clear. IMPRESSION: Unremarkable intracranial study for age, without an imaging explanation found for the patient's prese nting history. If there is strong clinical concern for a stroke, please consider a dedicated brain MRI for further e valuation (assuming that there is no contraindication to MRI). Reviewed by: Suman Dodd MD on 02/20/2021 3:44 PM [facility]ITA Approved by: Suman Dodd MD on 02/20/2021 3:44 PM [facility]ITA Station ID: [id number]
[2021-02-21 10:08] LABS: CALCIUM 9.4 mg/dL (8.5-10.3); CREATININE 1.1 mg/dL (0.6-1.2); MAGNESIUM 2.5 mg/dL (1.7-2.8); POTASSIUM 3.8 mmol/L (3.5-5.0)
--- NOTE | 2021-02-21 10:40 | CT Report ---
PROCEDURE: LUMBAR SPINE WO INDICATIONS: back pain; leg weakness TECHNIQUE: Noncontrast 3 mm thick sections acquired from the T12 level to the sacrum. Sagittal and coronal refo rmats were constructed. For radiation dose reduction, the following was used: automated exposure co ntrol, adjustment of mA and/or kV according to patient size. COMPARISON: None. FINDINGS: Image quality: Excellent. Bones: There is a mild L1 compression fracture, which is likely chronic. No acute compression fractur es. Mild degenerative anterolisthesis of L4 on L5. The other vertebral bodies are normally aligned. N o suspicious lytic or blastic bony lesions. There is heterotopic bone posteriorly at L4-S1. Central s yina caliber is of normal overall caliber. No pars defects. T10-T11: No canal stenosis or foraminal stenosis. T11-T12: No canal stenosis or foraminal stenosis. T12-L1: No canal stenosis or foraminal stenosis. L1-L2: No canal stenosis or foraminal stenosis. L2-L3: Disc bulge. Mild canal stenosis. No significant foraminal stenosis. L3-L4: Disc bulge. Facet and ligament hypertrophy. Moderate canal stenosis. No significant foramina l stenosis. L4-L5: Mild degenerative anterolisthesis of L4 on L5. Posterior disc bulge. Prominent bilateral fac et hypertrophy. No significant canal stenosis. Mild bilateral foraminal stenosis. L5-S1: No canal stenosis or foraminal stenosis. Soft tissues: No retroperitoneal masses or hematomas. Visualized aorta is normal in caliber. IMPRESSION: 1. An L1 compression is likely old. 2. Lumbar degenerative change. 3. Canal stenosis is mild at L2-L3 and moderate at L3-L4. Reviewed by: Narciso Mcgee MD on 02/21/2021 10:39 AM PDT Approved by: Narciso Mcgee MD on 02/21/2021 10:39 AM PDT Station ID: [id number]
[2021-02-21 11:04] LABS: B. PARAPERTUSSIS- RESP PCR PAN NOT DETECTED; B. PERTUSSIS- RESP PCR PANEL NOT DETECTED; C. PNEUMONIAE- RESP PCR PANEL NOT DETECTED; CORONAVIRUS 229E-RESP PCR NOT DETECTED; CORONAVIRUS HKU1-RESP PCR NOT DETECTED; CORONAVIRUS NL63-RESP PCR NOT DETECTED; CORONAVIRUS OC43-RESP PCR NOT DETECTED; HUMAN METAPNEUMOVIRUS NOT DETECTED; INFLUENZA A- RESP PCR PANEL NOT DETECTED; INFLUENZA B - RESP PCR PANEL NOT DETECTED; M. PNEUMONIAE- RESP PCR PANEL NOT DETECTED; PARAINFLUENZA VIRUS 1 NOT DETECTED; PARAINFLUENZA VIRUS 2 NOT DETECTED; PARAINFLUENZA VIRUS 3 NOT DETECTED; PARAINFLUENZA VIRUS 4 NOT DETECTED; RHINOVIRUS/ENTEROVIRUS NOT DETECTED; RSV- RESP PCR PANEL NOT DETECTED; SARS-CoV-2 -RESP PCR PANEL NOT DETECTED
[2021-02-22] MEDS: ACETAMINOPHEN 325 MG TABLET PO PRN (22:35)
[2021-02-22] MEDS: APIXABAN 5 MG TABLET PO SCH (22:35)
[2021-02-23] MEDS: ACETAMINOPHEN 325 MG TABLET PO PRN (08:26)
[2021-02-23] MEDS: MULTIVITAMIN W/MINERALS TABLET PO SCH (08:26)
[2021-02-23] MEDS: APIXABAN 5 MG TABLET PO SCH ×2 (08:26→20:50)
[2021-02-23] MEDS: COD LIVER OIL/ZINC OXIDE 113 GM TUBE TOP SCH ×2 (14:30→20:05)
--- NOTE | 2021-02-23 20:45 | ED Physician Documentation ---
History of Present Illness - Stated complaint Stated Complaint: WEAKNESS - Chief complaint Chief Complaint: Neuro - Additonal information Additional information: Subjective: Pt seen today in the ER for follow up. He has no concerns, though s tates he hasn't eaten yet today (he has, and in fact has a finished meal tray at his bedside). Obj: Gen: sleeping, wakes to voice and is pleasantly conversant, somewhat forgetful HEENT: mm slightly dry, anicteric Lungs: cta, non labored, room air Heart: rrr, no murmur Abd: soft and non tender, active. Ext: mild left knee swelling, no erythema or ttp. Moves all ext, legs are weak bilat. A/P Pt here w/ weakness and gait instability. No acute findings on physical exam. He is awaiting discharge to respite care on Thursday Continue BID xarelto for history of DVT, prn APAP, multivitamin, and vit c. Protonix daily (in place of home ompeprazole) Bisoprolol not on our formulary, pt has been normotensive in a NSR here. May resume on discharge. Prn metoprolol if needed. Will remain boarding in the ER pending respite placement PD PAST MEDICAL HISTORY - Past Medical History Past Medical History: Yes Cardiovascular: Hypertension, Deep vein thrombosis, Atrial fibrillation, Arrhythmia Respiratory: Sleep apnea Endocrine/Autoimmune:  GI: GERD, Hiatal hernia : Benign prostate hypertrophy, Kidney stones HEENT: Chronic vision loss, Chronic sinusitis, Chronic hearing loss Psych: Claustrophobia Musculoskeletal: Osteoarthritis, Gout, Chronic back pain Derm: None Other Past Medical History: Pt. states, "I have a DNR form signed but it's @ home on my refrigerator. Please do not do CPR." - Past Surgical History Past Surgical History: Yes General: Appendectomy, Colonoscopy Ortho: Spine surgery, Other Cardiovascular: Pacemaker HEENT: Tonsil/Adenoidectomy - Present Medications Home Medications: Ambulatory Orders Medication Instructions Recorded Confirmed Ascorbic Acid [Vitamin C] 1,000 mg PO TID 06/22/13 02/23/21 Bisoprolol Fumarate [Zebeta] 10 mg PO DAILY 06/22/13 02/23/21 Multivitamin [Multivitamins] 1 each PO DAILY 06/22/13 02/23/21 Omeprazole [PriLOSEC] 20 mg PO DAILY 06/22/13 02/23/21 Acetaminophen 1 - 2 tab PO Q8H PRN 08/11/18 02/23/21 Apixaban [Eliquis] 2.5 mg PO BID 02/22/21 02/22/21 Torsemide 02/22/21 - Allergies Allergies/Adverse Reactions: Allergies Allergy/AdvReac Type Severity Reaction Status Date / Time aspirin AdvReac Xarelto use Verified 02/20/21 11:33 fish oil AdvReac sleepy Verified 02/20/21 11:33 - Social History Does the pt smoke?: No Smoking Status: Never smoker Does the pt drink ETOH?: No Does the pt have substance abuse?: No - Immunizations Immunizations are current?: No - POLST Patient has POLST: No Results - Vitals Vitals: Vital Signs - 24 hr 02/22/21 02/23/21 02/23/21 22:43 00:47 03:27 Temperature 37.9 C 36.9 C 36.3 C L Heart Rate 78 Respiratory 16 Rate Blood Pressure 133/64 H O2 Saturation 95 02/23/21 02/23/21 02/23/21 03:45 03:59 04:10 Temperature Heart Rate 81 83 79 Respiratory 21 22 21 Rate Blood Pressure 132/59 H 132/59 H 129/81 H O2 Saturation 96 94 95 02/23/21 02/23/21 02/23/21 05:00 06:00 06:44 Temperature 36.0 C L Heart Rate 82 80 79 Respiratory 19 16 18 Rate Blood Pressure 122/54 L 121/48 L 104/55 L O2 Saturation 94 97 97 02/23/21 02/23/21 02/23/21 08:29 10:56 15:47 Temperature 37 C Heart Rate 92 95 87 Respiratory 23 20 18 Rate Blood Pressure 110/72 108/63 117/65 O2 Saturation 95 96 96 02/23/21 02/23/21 18:47 19:24 Temperature 37 C Heart Rate 96 84 Respiratory 18 18 Rate Blood Pressure 98/72 118/51 L O2 Saturation 96 96 Oxygen O2 Source Room air - Labs Labs: Laboratory Tests 02/20/21 02/20/21 02/20/21 12:00 12:00 15:13 WBC 6.0 RBC 3.89 L Hgb 11.0 L Hct 35.4 L MCV 91.0 MCH 28.3 MCHC 31.1 L RDW 16.7 H Plt Count 132 MPV 9.8 Neut # (Auto) 3.9 Lymph # (Auto) 1.2 L [place] # (Auto) 0.9 Eos # (Auto) 0.0 Baso # (Auto) 0.0 Absolute Nucleated RBC 0.00 Nucleated RBC % 0.0 ESR Sodium 141 Potassium 3.6 Chloride 102 Carbon Dioxide 29 Anion Gap 10.0 BUN 44 H Creatinine 1.3 H Estimated GFR (MDRD) 52 L Glucose 148 H Calcium 9.6 Magnesium Total Bilirubin 1.1 H AST 31 ALT 17 Alkaline Phosphatase 79 Total Creatine Kinase Total Protein 8.5 H Albumin 4.1 Globulin 4.4 H Albumin/Globulin Ratio 0.9 L Lipase 26 Vitamin B12 Urine Color YELLOW Urine Clarity CLEAR Urine pH 7.0 Ur Specific [place] 1.020 Urine Protein 100 H Urine Glucose (UA) NEGATIVE Urine Ketones NEGATIVE Urine Occult Blood TRACE-INTA Urine Nitrite NEGATIVE Urine Bilirubin NEGATIVE Urine Urobilinogen 0.2 (NORMAL) Ur Leukocyte Esterase NEGATIVE Urine RBC 0-5 Urine WBC 0-3 Ur Squamous Epith Cells RARE Squamous Urine Bacteria None Seen Ur Microscopic Review INDICATED Urine Culture Comments NOT INDICATED Nasal Adenovirus (PCR) Nasal B. parapertussis DNA (PCR) Nasal Coronavir 229E PCR Nasal Coronavir HKU1 PCR Nasal Coronavir NL63 PCR Nasal Coronavir OC43 PCR Nasal Enterovir/Rhinovir PCR Nasal Influenza B PCR Nasal Influenza A PCR Nasal Parainfluen 1 PCR Nasal Parainfluen 2 PCR Nasal Parainfluen 3 PCR Nasal Parainfluen 4 PCR Nasal RSV (PCR) Nasal B.pertussis DNA PCR Nasal C.pneumoniae (PCR) [place] Human Metapneumo PCR Nasal M.pneumoniae (PCR) Nasal SARS-CoV-2 (PCR) 02/21/21 02/21/21 02/21/21 09:45 09:45 09:45 WBC RBC Hgb Hct MCV MCH MCHC RDW Plt Count MPV Neut # (Auto) Lymph # (Auto) [place] # (Auto) Eos # (Auto) Baso # (Auto) Absolute Nucleated RBC Nucleated RBC % ESR 79 H Sodium 142 Potassium 3.8 Chloride 101 Carbon Dioxide 30 Anion Gap 11.0 BUN 46 H Creatinine 1.1 Estimated GFR (MDRD) 63 L Glucose 152 H Calcium 9.4 Magnesium 2.5 Total Bilirubin AST ALT Alkaline Phosphatase Total Creatine Kinase 136 Total Protein Albumin Globulin Albumin/Globulin Ratio Lipase Vitamin B12 567 Urine Color Urine Clarity Urine pH Ur Specific [place] Urine Protein Urine Glucose (UA) Urine Ketones Urine Occult Blood Urine Nitrite Urine Bilirubin Urine Urobilinogen Ur Leukocyte Esterase Urine RBC Urine WBC Ur Squamous Epith Cells Urine Bacteria Ur Microscopic Review Urine Culture Comments Nasal Adenovirus (PCR) Nasal B. parapertussis DNA (PCR) Nasal Coronavir 229E PCR Nasal Coronavir HKU1 PCR Nasal Coronavir NL63 PCR Nasal Coronavir OC43 PCR Nasal Enterovir/Rhinovir PCR Nasal Influenza B PCR Nasal Influenza A PCR Nasal Parainfluen 1 PCR Nasal Parainfluen 2 PCR Nasal Parainfluen 3 PCR Nasal Parainfluen 4 PCR Nasal RSV (PCR) Nasal B.pertussis DNA PCR Nasal C.pneumoniae (PCR) [place] Human Metapneumo PCR Nasal M.pneumoniae (PCR) Nasal SARS-CoV-2 (PCR) 02/21/21 09:50 WBC RBC Hgb Hct MCV MCH MCHC RDW Plt Count MPV Neut # (Auto) Lymph # (Auto) [place] # (Auto) Eos # (Auto) Baso # (Auto) Absolute Nucleated RBC Nucleated RBC % ESR Sodium Potassium Chloride Carbon Dioxide Anion Gap BUN Creatinine Estimated GFR (MDRD) Glucose Calcium Magnesium Total Bilirubin AST ALT Alkaline Phosphatase Total Creatine Kinase Total Protein Albumin Globulin Albumin/Globulin Ratio Lipase Vitamin B12 Urine Color Urine Clarity Urine pH Ur Specific [place] Urine Protein Urine Glucose (UA) Urine Ketones Urine Occult Blood Urine Nitrite Urine Bilirubin Urine Urobilinogen Ur Leukocyte Esterase Urine RBC Urine WBC Ur Squamous Epith Cells Urine Bacteria Ur Microscopic Review Urine Culture Comments Nasal Adenovirus (PCR) NOT DETECTED Nasal B. parapertussis DNA (PCR) NOT DETECTED Nasal Coronavir 229E PCR NOT DETECTED Nasal Coronavir HKU1 PCR NOT DETECTED Nasal Coronavir NL63 PCR NOT DETECTED Nasal Coronavir OC43 PCR NOT DETECTED Nasal Enterovir/Rhinovir PCR NOT DETECTED Nasal Influenza B PCR NOT DETECTED Nasal Influenza A PCR NOT DETECTED Nasal Parainfluen 1 PCR NOT DETECTED Nasal Parainfluen 2 PCR NOT DETECTED Nasal Parainfluen 3 PCR NOT DETECTED Nasal Parainfluen 4 PCR NOT DETECTED Nasal RSV (PCR) NOT DETECTED Nasal B.pertussis DNA PCR NOT DETECTED Nasal C.pneumoniae (PCR) NOT DETECTED [place] Human Metapneumo PCR NOT DETECTED Nasal M.pneumoniae (PCR) NOT DETECTED Nasal SARS-CoV-2 (PCR) NOT DETECTED Departure - Departure Clinical Impression: Asthenia Condition: Good
[2021-02-24] MEDS: ONDANSETRON 4 MG/2 ML VIAL IVP STA ×2 (05:32→05:39)
[2021-02-24] MEDS ORDERED: ONDANSETRON ODT 4 MG TABLET TL STA (05:44)
[2021-02-24] MEDS: ASCORBIC ACID 500 MG TABLET PO SCH (10:09)
[2021-02-24] MEDS: APIXABAN 5 MG TABLET PO SCH ×2 (10:09→21:43)
[2021-02-24] MEDS: MULTIVITAMIN W/MINERALS TABLET PO SCH (10:09)
[2021-02-24] MEDS: COD LIVER OIL/ZINC OXIDE 113 GM TUBE TOP SCH ×2 (10:09→21:05)
[2021-02-24] MEDS: PANTOPRAZOLE 40 MG TABLET PO SCH (10:10)
--- NOTE | 2021-02-24 12:09 | ED Physician Documentation ---
History of Present Illness - Stated complaint Stated Complaint: WEAKNESS - Chief complaint Chief Complaint: Neuro - Additonal information Additional information: Subjective: Pt seen today in the ER for daily evaluation. RN noted some skin br eakdown yesterday on coccxy during repositioning, barrier cream ordered. He had some nausea early this AM apparently and received zofran. He denies any acute concerns. Vital signs reviewed. Obj: Gen: awake though drowsy, appears in no distress. HEENT: mm slightly dry, anicteric Lungs: cta, non labored, room air Heart: rrr, no murmur Abd: soft and non tender, active. Ext: mild left knee swelling, no erythema or ttp. Moves all ext, legs are weak bilat. A/P Pt here w/ weakness and gait instability and is not able to safely discharge home. He is awaiting discharge to respite care tomorrow Continue BID xarelto for history of DVT, prn APAP, multivitamin, and vit c. Continue barrier cream and q2hr turns. Protonix daily (in place of home ompeprazole) Bisoprolol not on our formulary, pt has been normotensive in a NSR here. May resume on discharge. Prn metoprolol if needed. Will remain boarding in the ER pending respite placement PD PAST MEDICAL HISTORY - Past Medical History Past Medical History: Yes Cardiovascular: Hypertension, Deep vein thrombosis, Atrial fibrillation, Arrhythmia Respiratory: Sleep apnea Endocrine/Autoimmune:  GI: GERD, Hiatal hernia : Benign prostate hypertrophy, Kidney stones HEENT: Chronic vision loss, Chronic sinusitis, Chronic hearing loss Psych: Claustrophobia Musculoskeletal: Osteoarthritis, Gout, Chronic back pain Derm: None Other Past Medical History: Pt. states, "I have a DNR form signed but it's @ home on my refrigerator. Please do not do CPR." - Past Surgical History Past Surgical History: Yes General: Appendectomy, Colonoscopy Ortho: Spine surgery, Other Cardiovascular: Pacemaker HEENT: Tonsil/Adenoidectomy - Present Medications Home Medications: Ambulatory Orders Medication Instructions Recorded Confirmed Ascorbic Acid [Vitamin C] 1,000 mg PO TID 06/22/13 02/23/21 Bisoprolol Fumarate [Zebeta] 10 mg PO DAILY 06/22/13 02/23/21 Multivitamin [Multivitamins] 1 each PO DAILY 06/22/13 02/23/21 Omeprazole [PriLOSEC] 20 mg PO DAILY 06/22/13 02/23/21 Acetaminophen 1 - 2 tab PO Q8H PRN 08/11/18 02/23/21 Apixaban [Eliquis] 2.5 mg PO BID 02/22/21 02/22/21 Torsemide 02/22/21 - Allergies Allergies/Adverse Reactions: Allergies Allergy/AdvReac Type Severity Reaction Status Date / Time aspirin AdvReac Xarelto use Verified 02/20/21 11:33 fish oil AdvReac sleepy Verified 02/20/21 11:33 - Social History Does the pt smoke?: No Smoking Status: Never smoker Does the pt drink ETOH?: No Does the pt have substance abuse?: No - Immunizations Immunizations are current?: No - POLST Patient has POLST: No Results - Vitals Vitals: Vital Signs - 24 hr 02/23/21 02/23/21 02/23/21 15:47 18:47 19:24 Temperature 37 C Heart Rate 87 96 84 Respiratory 18 18 18 Rate Blood Pressure 117/65 98/72 118/51 L O2 Saturation 96 96 96 02/24/21 02/24/21 01:11 09:38 Temperature 37.1 C 37.2 C Heart Rate 85 98 Respiratory 16 20 Rate Blood Pressure 119/58 L 112/73 O2 Saturation 99 95 Oxygen O2 Source Room air - Labs Labs: Laboratory Tests 02/20/21 02/20/21 02/20/21 12:00 12:00 15:13 WBC 6.0 RBC 3.89 L Hgb 11.0 L Hct 35.4 L MCV 91.0 MCH 28.3 MCHC 31.1 L RDW 16.7 H Plt Count 132 MPV 9.8 Neut # (Auto) 3.9 Lymph # (Auto) 1.2 L [place] # (Auto) 0.9 Eos # (Auto) 0.0 Baso # (Auto) 0.0 Absolute Nucleated RBC 0.00 Nucleated RBC % 0.0 ESR Sodium 141 Potassium 3.6 Chloride 102 Carbon Dioxide 29 Anion Gap 10.0 BUN 44 H Creatinine 1.3 H Estimated GFR (MDRD) 52 L Glucose 148 H Calcium 9.6 Magnesium Total Bilirubin 1.1 H AST 31 ALT 17 Alkaline Phosphatase 79 Total Creatine Kinase Total Protein 8.5 H Albumin 4.1 Globulin 4.4 H Albumin/Globulin Ratio 0.9 L Lipase 26 Vitamin B12 Urine Color YELLOW Urine Clarity CLEAR Urine pH 7.0 Ur Specific [place] 1.020 Urine Protein 100 H Urine Glucose (UA) NEGATIVE Urine Ketones NEGATIVE Urine Occult Blood TRACE-INTA Urine Nitrite NEGATIVE Urine Bilirubin NEGATIVE Urine Urobilinogen 0.2 (NORMAL) Ur Leukocyte Esterase NEGATIVE Urine RBC 0-5 Urine WBC 0-3 Ur Squamous Epith Cells RARE Squamous Urine Bacteria None Seen Ur Microscopic Review INDICATED Urine Culture Comments NOT INDICATED Nasal Adenovirus (PCR) Nasal B. parapertussis DNA (PCR) Nasal Coronavir 229E PCR Nasal Coronavir HKU1 PCR Nasal Coronavir NL63 PCR Nasal Coronavir OC43 PCR Nasal Enterovir/Rhinovir PCR Nasal Influenza B PCR Nasal Influenza A PCR Nasal Parainfluen 1 PCR Nasal Parainfluen 2 PCR Nasal Parainfluen 3 PCR Nasal Parainfluen 4 PCR Nasal RSV (PCR) Nasal B.pertussis DNA PCR Nasal C.pneumoniae (PCR) [place] Human Metapneumo PCR Nasal M.pneumoniae (PCR) Nasal SARS-CoV-2 (PCR) 02/21/21 02/21/21 02/21/21 09:45 09:45 09:45 WBC RBC Hgb Hct MCV MCH MCHC RDW Plt Count MPV Neut # (Auto) Lymph # (Auto) [place] # (Auto) Eos # (Auto) Baso # (Auto) Absolute Nucleated RBC Nucleated RBC % ESR 79 H Sodium 142 Potassium 3.8 Chloride 101 Carbon Dioxide 30 Anion Gap 11.0 BUN 46 H Creatinine 1.1 Estimated GFR (MDRD) 63 L Glucose 152 H Calcium 9.4 Magnesium 2.5 Total Bilirubin AST ALT Alkaline Phosphatase Total Creatine Kinase 136 Total Protein Albumin Globulin Albumin/Globulin Ratio Lipase Vitamin B12 567 Urine Color Urine Clarity Urine pH Ur Specific [place] Urine Protein Urine Glucose (UA) Urine Ketones Urine Occult Blood Urine Nitrite Urine Bilirubin Urine Urobilinogen Ur Leukocyte Esterase Urine RBC Urine WBC Ur Squamous Epith Cells Urine Bacteria Ur Microscopic Review Urine Culture Comments Nasal Adenovirus (PCR) Nasal B. parapertussis DNA (PCR) Nasal Coronavir 229E PCR Nasal Coronavir HKU1 PCR Nasal Coronavir NL63 PCR Nasal Coronavir OC43 PCR Nasal Enterovir/Rhinovir PCR Nasal Influenza B PCR Nasal Influenza A PCR Nasal Parainfluen 1 PCR Nasal Parainfluen 2 PCR Nasal Parainfluen 3 PCR Nasal Parainfluen 4 PCR Nasal RSV (PCR) Nasal B.pertussis DNA PCR Nasal C.pneumoniae (PCR) [place] Human Metapneumo PCR Nasal M.pneumoniae (PCR) Nasal SARS-CoV-2 (PCR) 02/21/21 09:50 WBC RBC Hgb Hct MCV MCH MCHC RDW Plt Count MPV Neut # (Auto) Lymph # (Auto) [place] # (Auto) Eos # (Auto) Baso # (Auto) Absolute Nucleated RBC Nucleated RBC % ESR Sodium Potassium Chloride Carbon Dioxide Anion Gap BUN Creatinine Estimated GFR (MDRD) Glucose Calcium Magnesium Total Bilirubin AST ALT Alkaline Phosphatase Total Creatine Kinase Total Protein Albumin Globulin Albumin/Globulin Ratio Lipase Vitamin B12 Urine Color Urine Clarity Urine pH Ur Specific [place] Urine Protein Urine Glucose (UA) Urine Ketones Urine Occult Blood Urine Nitrite Urine Bilirubin Urine Urobilinogen Ur Leukocyte Esterase Urine RBC Urine WBC Ur Squamous Epith Cells Urine Bacteria Ur Microscopic Review Urine Culture Comments Nasal Adenovirus (PCR) NOT DETECTED Nasal B. parapertussis DNA (PCR) NOT DETECTED Nasal Coronavir 229E PCR NOT DETECTED Nasal Coronavir HKU1 PCR NOT DETECTED Nasal Coronavir NL63 PCR NOT DETECTED Nasal Coronavir OC43 PCR NOT DETECTED Nasal Enterovir/Rhinovir PCR NOT DETECTED Nasal Influenza B PCR NOT DETECTED Nasal Influenza A PCR NOT DETECTED Nasal Parainfluen 1 PCR NOT DETECTED Nasal Parainfluen 2 PCR NOT DETECTED Nasal Parainfluen 3 PCR NOT DETECTED Nasal Parainfluen 4 PCR NOT DETECTED Nasal RSV (PCR) NOT DETECTED Nasal B.pertussis DNA PCR NOT DETECTED Nasal C.pneumoniae (PCR) NOT DETECTED [place] Human Metapneumo PCR NOT DETECTED Nasal M.pneumoniae (PCR) NOT DETECTED Nasal SARS-CoV-2 (PCR) NOT DETECTED Departure - Departure Clinical Impression: Asthenia Condition: Good
[2021-02-24] MEDS: METOPROLOL TARTRATE 50 MG TABLET PO SCH ×2 (12:45→21:43)
[2021-02-24] MEDS: ACETAMINOPHEN 325 MG TABLET PO PRN (17:08)
[2021-02-25] MEDS: ASCORBIC ACID 500 MG TABLET PO SCH (08:42)
[2021-02-25] MEDS: APIXABAN 5 MG TABLET PO SCH (08:42)
[2021-02-25] MEDS: COD LIVER OIL/ZINC OXIDE 113 GM TUBE TOP SCH (08:42)
[2021-02-25] MEDS: MULTIVITAMIN W/MINERALS TABLET PO SCH (08:42)
[2021-02-25] MEDS: METOPROLOL TARTRATE 50 MG TABLET PO SCH (08:43)
[2021-02-25] MEDS: PANTOPRAZOLE 40 MG TABLET PO SCH (08:43)
[2021-02-25 09:57] LABS: B. PARAPERTUSSIS- RESP PCR PAN NOT DETECTED; B. PERTUSSIS- RESP PCR PANEL NOT DETECTED; C. PNEUMONIAE- RESP PCR PANEL NOT DETECTED; CORONAVIRUS 229E-RESP PCR NOT DETECTED; CORONAVIRUS HKU1-RESP PCR NOT DETECTED; CORONAVIRUS NL63-RESP PCR NOT DETECTED; CORONAVIRUS OC43-RESP PCR NOT DETECTED; HUMAN METAPNEUMOVIRUS NOT DETECTED; INFLUENZA A- RESP PCR PANEL NOT DETECTED; INFLUENZA B - RESP PCR PANEL NOT DETECTED; M. PNEUMONIAE- RESP PCR PANEL NOT DETECTED; PARAINFLUENZA VIRUS 1 NOT DETECTED; PARAINFLUENZA VIRUS 2 NOT DETECTED; PARAINFLUENZA VIRUS 3 NOT DETECTED; PARAINFLUENZA VIRUS 4 NOT DETECTED; RHINOVIRUS/ENTEROVIRUS NOT DETECTED; RSV- RESP PCR PANEL NOT DETECTED; SARS-CoV-2 -RESP PCR PANEL NOT DETECTED
[2021-02-25 13:10] VITALS: BP 118/60
== END 2021-02-25 13:09 | disposition home or self-care (01) ==
LOC: EDUNIT# → ED 11:25
DX: R53.1 Weakness (principal); Z86.718 Personal history of other venous thrombosis and embolism; Z79.01 Long term (current) use of anticoagulants; I48.91 Unspecified atrial fibrillation; Z66 Do not resuscitate; Z20.822 Contact with and (suspected) exposure to COVID-19; I12.9 Hypertensive chronic kidney disease with stage 1 through stage 4 chronic kidney disease, or unspecified chronic kidney disease; N18.9 Chronic kidney disease, unspecified; D72.819 Decreased white blood cell count, unspecified; Z95.0 Presence of cardiac pacemaker
CPT/HCPCS: 36415; 70450; 72131; 80048; 80053; 81001; 82550; 82607; 83690; 83735; 84207; 85025; 85651; 87631; 96360; 96361; 99284; A9270; Q0162; 0202U; 81003; 87086

== ENCOUNTER 2021-02-25 13:10 | Outpatient (CLI) | payer MEDICARE, OTHER | END 2021-02-25 13:11 | LOC: EMS 13:10 | PROVIDERS: ATTEND Emergency Medicine | DX: R53.1 Weakness (principal); Z74.01 Bed confinement status; R53.81 Other malaise | CPT/HCPCS: A0425; A0428 ==